=== PATIENT | female | born 1960 | race Caucasian/White ===

== ENCOUNTER 2020-12-07 04:30 | Day surgery (SDC) | payer OTHER ==
[2020-12-06 09:13] VITALS: BMI 29.0
[2020-12-07] MEDS ORDERED: VASOPRESSIN 20 UNITS/ML VIAL IV ONE (07:24)
[2020-12-07] MEDS ORDERED: LIDOCAINE HCL/PF 2% SDV 5ML VIAL ONE (07:25)
[2020-12-07] MEDS ORDERED: MIDAZOLAM HCL 2 MG/2 ML SINGLE DOSE VIAL ONE (07:25)
[2020-12-07] MEDS ORDERED: PROPOFOL 20 ML ONE ×3 (07:25)
[2020-12-07] MEDS ORDERED: ceFAZolin SODIUM 1 GM VIAL IVPB ONE (08:00)
[2020-12-07] MEDS ORDERED: PROMETHAZINE HCL 25 MG/1 ML VIAL IVPUSH PRN (08:04)
[2020-12-07] MEDS ORDERED: ONDANSETRON 4 MG/2 ML VIAL IVPUSH PRN (08:04)
[2020-12-07] MEDS ORDERED: oxyCODONE HCL 5 MG TABLET PO PRN ×2 (08:04→08:38)
[2020-12-07] MEDS ORDERED: LACTATED RINGERS SOLUTION 1,000 ML IV SCH (08:15)
[2020-12-07] MEDS ORDERED: ACETAMINOPHEN 325 MG TABLET (FP) PO PRN (10:46)
[2020-12-07 11:54] VITALS: BP 113/60; PULSE 53; TEMP 96.9
== END 2020-12-07 11:56 | disposition home or self-care (01) ==
LOC: JASU-SURG 04:30
PROVIDERS: ATTEND Obstetrics & Gynecology Female Pelvic Medicine and Reconstructive Surgery
PROC: 0TJB8ZZ Inspection of Bladder, Via Natural or Artificial Opening Endoscopic (ICD-10-PCS; 2020-12-07)
PROC: 0JQC0ZZ Repair Pelvic Region Subcutaneous Tissue and Fascia, Open Approach (ICD-10-PCS; principal; 2020-12-07 07:30)
DX: N81.10 Cystocele, unspecified (principal)
CPT/HCPCS: 94760

== ENCOUNTER 2024-01-18 04:10 | Day surgery (SDC) | payer OTHER ==
[2024-01-14 15:54] VITALS: BMI 28.2
[2024-01-18 08:33] VITALS: RESP 18; TEMP 97.4
[2024-01-18 10:46] VITALS: BP 134/67; PULSE 73
== END 2024-01-18 10:47 | disposition home or self-care (01) ==
LOC: JASU-ENDO 04:10
PROVIDERS: ATTEND Internal Medicine Gastroenterology
PROC: 0DBL8ZX Excision of Transverse Colon, Via Natural or Artificial Opening Endoscopic, Diagnostic (ICD-10-PCS; principal; 2024-01-18 08:00)
DX: Z12.11 Encounter for screening for malignant neoplasm of colon (principal); D12.0 Benign neoplasm of cecum; K64.8 Other hemorrhoids
CPT/HCPCS: 88305-TC